=== PATIENT | male | born 1980 | race Hispanic/Latino ===

== ENCOUNTER 2019-02-19 20:29 | Emergency (ER) | payer SELFPAY ==
[~2019-02-19] VITALS: Ht 152.4 cm; Wt 70.0 kg
[2019-02-19 23:45] VITALS: BP 112/72
== END 2019-02-19 23:58 | DRG 914 ==
LOC: ED 20:29
DX: S67.192A Crushing injury of right middle finger, initial encounter (principal); S61.212A Laceration without foreign body of right middle finger without damage to nail, initial encounter; W20.8XXA Other cause of strike by thrown, projected or falling object, initial encounter; Y93.89 Activity, other specified; Y92.009 Unspecified place in unspecified non-institutional (private) residence as the place of occurrence of the external cause